=== PATIENT | male | born 1980 | race Caucasian/White ===

== ENCOUNTER 2021-01-20 09:27 | Emergency (ER) | payer SELFPAY ==
[~2021-01-20] VITALS: Ht 160 cm; Wt 58.5 kg
[2021-01-20 09:31] VITALS: BP 130/104
[2021-01-20] MEDS ORDERED: NACL 0.9% 1,000 ML IV ONE (10:05)
[2021-01-20] MEDS ORDERED: KETOROLAC 15 MG/ML VIAL IVP ONE (10:05)
[2021-01-20 10:42] LABS: BASOPHILS % (AUTO) 0.5 % (0.0-2.0); EOSINOPHILS # (AUTO) 0.1 K/uL (0-0.4); EOSINOPHILS % (AUTO) 0.9 % (0.0-4.0); HEMATOCRIT 45.5 % (36-52); HEMOGLOBIN 15.6 g/dL (12.0-18.0); LYMPHOCYTES # (AUTO) 1.9 K/uL (2.0-11.5); LYMPHOCYTES % (AUTO) 20.9 % (20.5-51.1); MEAN CORPUSCULAR HEMOGLOBIN 29 pg (27-31); MEAN CORPUSCULAR HGB CONC 34 g/dL (33-37); MEAN CORPUSCULAR VOLUME 83.1 fL (80-94); MONOCYTES # (AUTO) 0.5 K/uL (0.8-1.0); MONOCYTES % (AUTO) 5.2 % (1.7-9.3); NEUTROPHILS # (AUTO) 6.6 K/uL (1.8-7.7); NEUTROPHILS % (AUTO) 72.5 % (42.2-75.2); PLATELET COUNT (AUTO) 297 K/uL (140-450); RED BLOOD CELL COUNT(AUTO) 5.48 MIL/uL (4.20-6.10); RED CELL DISTRIBUTION WIDTH 13.5 % (11.6-13.7); WHITE BLOOD COUNT (AUTO) 9.1 K/uL (4.8-10.8)
--- NOTE | 2021-01-20 10:53 | NUR ---
OBTAINED CT CONSENT PLACED IN PT CHART.
[2021-01-20 10:55] LABS: BILIRUBIN,URINE 1+ (NEGATIVE); BLOOD, URINE 3+ (NEGATIVE); COLOR,URINE YELLOW (YELLOW); LEUKOCYTE ESTERASE ,URINE NEGATIVE (NEGATIVE); NITRITE, URINE NEGATIVE (NEGATIVE); UGLUCOSE NEGATIVE (NEGATIVE)
[2021-01-20 11:09] LABS: APPEARANCE,URINE SLIGHTLY HAZY (CLEAR)
[2021-01-20 11:12] LABS: RBC,URINE 50-80 /HPF (0-5); WBC,URINE 0-5 /HPF (0-5)
--- NOTE | 2021-01-20 11:38 | NUR ---
PT TAKEN TO CT VIA W/C
[2021-01-20] MEDS ORDERED: MORPHINE SULFATE 2 MG/ML SYR IVP ONE (12:00)
--- NOTE | 2021-01-20 12:56 | NUR ---
40 YEAR OLD MALE COMPLAINS OF RUQ ABDOMINAL PAIN X 3 DAYS. PT STATES HE HAS NAUSEA AND VOMITTING, BUT DENIES DIARRHEA. PT DENIES BLOOD IN VOMIT. BOWEL SOUNDS ACTIVE ALL QUADRANTS, SOFT NONTENDER. PT AOX4, BREATHING EVEN AND UNLABORED, SKIN WARM AND DRY. BED IN LOWEST POSITION, LOCKED, BED RAIL UPX1 PMH - DENIES ALLERGIES - NKA
[2021-01-20 13:12] LABS: ALBUMIN 3.5 g/dL (3.4-5.0); ANION GAP 13.6 (8-16); CARBON DIOXIDE 25.4 mmol/L (21-32); CREATININE 1.2 mg/dL (0.6-1.3); TOTAL BILIRUBIN 0.4 mg/dL (0.0-1.0)
[2021-01-20] MEDS ORDERED: ACET-8386 PO (13:22)
[2021-01-20] MEDS ORDERED: TAMS0.4C96 PO (13:22)
[2021-01-20] MEDS ORDERED: IBUP-2213 PO (13:22)
--- NOTE | 2021-01-20 13:40 | NUR ---
Patient discharged with v/s stable. Written and verbal after care instructions about renal colic given and explained. Patient alert, oriented and verbalized understanding of instructions. Ambulatory with steady gait. All questions addressed prior to discharge. ID band removed. Patient advised to follow up with PMD. Rx of norco, ibuprofen, flomax given. Patient educated on indication of medication including possible reaction and side effects. Opportunity to ask questions provided and answered.
[2021-01-20 13:41] VITALS: BP 132/90
== END 2021-01-20 13:40 | disposition home or self-care (01) ==
LOC: MED 09:27
DX: N20.1 Calculus of ureter (principal); N23 Unspecified renal colic; F17.210 Nicotine dependence, cigarettes, uncomplicated; Z79.899 Other long term (current) drug therapy; Z71.6 Tobacco abuse counseling
CPT/HCPCS: 36415; 74176; 80053; 81001; 85025; 96361; 96374; 96375; 99284; J1885; J2270; J7030

== ENCOUNTER 2021-05-14 19:21 | Emergency (ER) | payer MEDICAID ==
[~2021-05-14] VITALS: Ht 152.4 cm; Wt 56.7 kg
[~2021-05-14 19:21] MED LIST: ACET-8386 PO; IBUP-2213 PO; TAMS0.4C96 PO
[2021-05-14 19:24] VITALS: BP 124/75
--- NOTE | 2021-05-14 19:27 | NUR ---
TO LOBBY A/W BED AMBULATORY
[2021-05-14] MEDS ORDERED: FAMOTIDINE 20 MG TAB PO ONE (19:40)
[2021-05-14] MEDS ORDERED: ALUMINUM HYD/MAG/SIMETHICONE 30 ML UDC PO ONE (19:40)
[2021-05-14 19:58] LABS: BASOPHILS # (AUTO) 0.1 K/uL (0.00-0.22); BASOPHILS % (AUTO) 0.5 % (0.0-2.0); EOSINOPHILS # (AUTO) 0.2 K/uL (0-0.4); EOSINOPHILS % (AUTO) 1.9 % (0.0-4.0); HEMATOCRIT 43.4 % (36-52); HEMOGLOBIN 14.3 g/dL (12.0-18.0); LYMPHOCYTES # (AUTO) 1.9 K/uL (2.0-11.5); LYMPHOCYTES % (AUTO) 17.6 % (20.5-51.1); MEAN CORPUSCULAR HEMOGLOBIN 27 pg (27-31); MEAN CORPUSCULAR HGB CONC 33 g/dL (33-37); MEAN CORPUSCULAR VOLUME 82.3 fL (80-94); MONOCYTES # (AUTO) 0.8 K/uL (0.8-1.0); MONOCYTES % (AUTO) 7.3 % (1.7-9.3); NEUTROPHILS % (AUTO) 72.7 % (42.2-75.2); PLATELET COUNT (AUTO) 479 K/uL (140-450); RED BLOOD CELL COUNT(AUTO) 5.27 MIL/uL (4.20-6.10); RED CELL DISTRIBUTION WIDTH 13.8 % (11.6-13.7)
[2021-05-14 20:13] LABS: ALBUMIN 3.4 g/dL (3.4-5.0); ANION GAP 9.7 (8-16); CARBON DIOXIDE 30.7 mmol/L (21-32); POTASSIUM 4.4 mmol/L (3.5-5.1); TOTAL BILIRUBIN 0.2 mg/dL (0.0-1.0)
--- NOTE | 2021-05-14 21:10 | NUR ---
PT AMB TO BED 1
[2021-05-14] MEDS ORDERED: MORPHINE SULFATE 2 MG/ML SYR IVP ONE (23:20)
[2021-05-14] MEDS ORDERED: FAMO-90 PO (23:44)
--- NOTE | 2021-05-14 23:48 | NUR ---
ERMD at bedside for re-examination and made patient aware of the results
[2021-05-15 00:07] VITALS: BP 119/63
--- NOTE | 2021-05-15 00:07 | NUR ---
pt states that his girlfriend is waiting in the car to drive him home.
--- NOTE | 2021-05-15 00:09 | NUR ---
Patient discharged with v/s stable. Written and verbal after care instructions given and explained. Patient verbalized understanding. Ambulatory with steady gait. All questions addressed prior to discharge. Advised to follow up with PMD.
== END 2021-05-15 00:09 | disposition home or self-care (01) ==
LOC: MED 19:21
DX: R10.13 Epigastric pain (principal); R10.12 Left upper quadrant pain; R11.2 Nausea with vomiting, unspecified
CPT/HCPCS: 36415; 71045; 76705; 80053; 83690; 85025; 93005; 96374; 99285; J2270; Q0092

== ENCOUNTER 2022-03-05 22:59 | Emergency (ER) | payer SELFPAY ==
[~2022-03-05] VITALS: Ht 167.6 cm; Wt 55.5 kg
[~2022-03-05 22:59] MED LIST changes: +FAMO-90 PO
[2022-03-05 23:48] VITALS: BP 143/86
--- NOTE | 2022-03-05 23:52 | NUR ---
PT SENT TO LOBBY
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
[2022-03-06] MEDS ORDERED: KETOROLAC 60 MG/2 ML VIAL IM ONE (00:45)
[2022-03-06] MEDS ORDERED: HYDROcodone/APAP 5/325 MG 1 TAB TAB PO ONE (00:45)
--- NOTE | 2022-03-06 00:57 | NUR ---
PT MEDICATED PER ORDERS.
--- NOTE | 2022-03-06 00:59 | NUR ---
ERMD EVALUATING PT
[2022-03-06] MEDS ORDERED: IBUP-2213 PO (01:16)
[2022-03-06] MEDS ORDERED: ACET-8386 PO (01:16)
[2022-03-06 01:27] VITALS: BP 143/86
--- NOTE | 2022-03-06 01:27 | NUR ---
Patient discharged with v/s stable. Written and verbal after care instructions given and explained. Patient alert, oriented and verbalized understanding of instructions. Ambulatory with steady gait. All questions addressed prior to discharge. ID band removed. Patient advised to follow up with PMD. Rx of NORCO AND IBUPROFEN given. Patient educated on indication of medication including possible reaction and side effects. Opportunity to ask questions provided and answered.
== END 2022-03-06 01:27 | disposition home or self-care (01) ==
LOC: MED 22:59
DX: S42.032A Displaced fracture of lateral end of left clavicle, initial encounter for closed fracture (principal); W18.30XA Fall on same level, unspecified, initial encounter; Y93.89 Activity, other specified; Y92.89 Other specified places as the place of occurrence of the external cause; Y99.8 Other external cause status
CPT/HCPCS: 73030; 96372; 99283; J1885

== ENCOUNTER 2022-03-13 19:04 | Inpatient (IN) | payer MEDICAID ==
[~2022-03-13] VITALS: Ht 167.6 cm; Wt 56.7 kg
[2022-03-13 20:09] VITALS: BP 149/72
--- NOTE | 2022-03-13 22:43 | NUR ---
Patient ambulated to bed 12.
--- NOTE | 2022-03-13 23:01 | NUR ---
41 yo m bib self with c/c of 10/10 burning/itching rash to rt side of neck, cheek, and posterior of rt of head x1day. pt states the rash began all at once, pt's rash is made up of clear filled vesicles and mild redness an dryness. pt states he thinks a spider may have bit him. pt denies taking any medication. denies hx, rx and allergies
[2022-03-14] MEDS ORDERED: ONDANSETRON 4 MG/2 ML VIAL IVP ONE (00:05)
[2022-03-14] MEDS ORDERED: ACYCLOVIR 700 MG in NACL 0.9% 100 ML IV ONE (00:05)
[2022-03-14] MEDS ORDERED: MORPHINE SULFATE 4 MG/ML SYR IVP ONE (00:05)
--- NOTE | 2022-03-14 00:09 | NUR ---
LAB AT BEDSIDE.
[2022-03-14] MEDS ORDERED: ACYCLOVIR 500 MG VIAL IV ONE (00:15)
--- NOTE | 2022-03-14 00:19 | NUR ---
pt placed on rigging loft mechanic.
[2022-03-14 00:20] LABS: BASOPHILS # (AUTO) 0.1 K/uL (0.00-0.22); BASOPHILS % (AUTO) 0.8 % (0.0-2.0); EOSINOPHILS # (AUTO) 0.1 K/uL (0-0.4); EOSINOPHILS % (AUTO) 2.2 % (0.0-4.0); HEMATOCRIT 39.3 % (36-52); HEMOGLOBIN 13.1 g/dL (12.0-18.0); LYMPHOCYTES # (AUTO) 1.9 K/uL (2.0-11.5); LYMPHOCYTES % (AUTO) 28.2 % (20.5-51.1); MEAN CORPUSCULAR HEMOGLOBIN 27 pg (27-31); MEAN CORPUSCULAR HGB CONC 33 g/dL (33-37); MEAN CORPUSCULAR VOLUME 81.4 fL (80-94); MONOCYTES # (AUTO) 0.8 K/uL (0.8-1.0); MONOCYTES % (AUTO) 11.8 % (1.7-9.3); NEUTROPHILS # (AUTO) 3.8 K/uL (1.8-7.7); PLATELET COUNT (AUTO) 250 K/uL (140-450); RED BLOOD CELL COUNT(AUTO) 4.82 MIL/uL (4.20-6.10); RED CELL DISTRIBUTION WIDTH 14.6 % (11.6-13.7); WHITE BLOOD COUNT (AUTO) 6.7 K/uL (4.8-10.8)
[2022-03-14 00:35] LABS: ALBUMIN 3.4 g/dL (3.4-5.0); ANION GAP 9.3 (8-16); CARBON DIOXIDE 30.7 mmol/L (21-32); CREATININE 0.7 mg/dL (0.6-1.3); TOTAL BILIRUBIN 0.3 mg/dL (0.0-1.0)
--- NOTE | 2022-03-14 00:43 | NUR ---
IV ESTAB TO LEFT UPPER ARM 20G. PT MEDICATED PER ORDERS.
--- NOTE | 2022-03-14 03:31 | NUR ---
PT APPEARS TO BE RESTING WITH HIS EYES CLOSED. EQUAL RISE AND FALL OF CHEST WALL. HE OPENS HIS EYES TO SOUND. VSS. BED LOCKED IN LOWEST POSITION, SIDE RAILS X2 FOR SAFETY.
[2022-03-14] MEDS: MORPHINE SULFATE 2 MG/ML SYR IVP PRN (04:58)
--- NOTE | 2022-03-14 05:03 | NUR ---
pt reported 8/10 rt neck pain. pt medicated per prn orders.
--- NOTE | 2022-03-14 07:14 | NUR ---
Pt report given to darrell jones. Transfer of care at this time.
--- NOTE | 2022-03-14 07:14 | NUR ---
Report and continuation of care received from JIMMIE Sullivan.
[2022-03-14 07:40] VITALS: BP 140/82
--- NOTE | 2022-03-14 07:40 | NUR ---
PATIENT ARRIVED ON UNIT FROM ER, NO DISTRESS NOTED. DENIES ANY PAIN AT THIS TIME, HAS SHINGLES LESIONS ON NECK AND FACE, NOT CRUSTED. AAOX4, RA, AMBULATES INDEPENDENTLY. IV SITE INTACT, PATENT, ON SALINE LOCK. ORIENTED PATIENT TO ROOM AND CALL LIGHT. SAFETY MEASURES IN PLACE, CALL LIGHT WITHIN REACH. WILL CONTINUE TO MONITOR.
--- NOTE | 2022-03-14 07:42 | NUR ---
Patient will be admitted to care of Dr. Maravilla. Admited to M/S. Will go to room 113. Belongings list completed. Report to JIMMIE Graham.
--- NOTE | 2022-03-14 08:53 | NUR ---
PATIENT HAS BEEN SCREENED AND CATEGORIZED LOW NUTRITION RISK. PATIENT WILL BE SEEN WITHIN 7 DAYS OF ADMISSION. 03/20/[address]
[2022-03-14] MEDS ORDERED: HYDROcodone/APAP 7.5/325 MG 1 TAB PO PRN (11:15)
[2022-03-14] MEDS ORDERED: ZOLPIDEM 5 MG TAB PO PRN (11:15)
[2022-03-14] MEDS ORDERED: guaiFENesin DM 200/20 MG-10 ML 10 ML UDC PO PRN (11:15)
[2022-03-14] MEDS ORDERED: POTASSIUM CHLORIDE 10 MEQ TABER PO PRN (11:15)
[2022-03-14] MEDS ORDERED: DOCUSATE SODIUM 100 MG GELCAP PO PRN (11:15)
[2022-03-14] MEDS ORDERED: ONDANSETRON 4 MG/2 ML VIAL IM/IVP PRN (11:15)
[2022-03-14] MEDS ORDERED: MORPHINE SULFATE 2 MG/ML SYR IVP PRN (11:15)
[2022-03-14] MEDS ORDERED: ACETAMINOPHEN 325 MG TAB PO PRN (11:15)
[2022-03-14 11:47] LABS: CHOL/HDL RATIO 3.6 (1-4.5); PHOSPHORUS 3.2 mg/dL (2.5-4.9)
[2022-03-14] MEDS ORDERED: CLINDAMYCIN 600MG/D5W PM 50 ML IV SCH (12:00)
[2022-03-14] MEDS ORDERED: CLINDAMYCIN 600 MG in DEXTROSE 5% 50 ML IV SCH (12:00)
--- NOTE | 2022-03-14 13:38 | NUR ---
SCHEDULED MEDICATIONS DUE GIVEN. WILL CONTINUE TO MONITOR.
--- NOTE | 2022-03-14 14:23 | NUR ---
DC PLANNING: THE PATIENT PRESENTED FROM HOME TO ED WITH C/O PAINFUL RASH TO THE RIGHT SIDE OF HIS NECK X 2 DAYS. GIVEN ACYCLOVIR AND MORPHINE IN THE ED, BLOOD CULTURES IN PROGRESS. ID CONSULT ORDERED, PATIENT ON CLINDAMYCIN IV. CM SPOKE WITH THE PATIENT AT BEDSIDE AND CONFIRMED HIS ADDRESS AND PHONE NUMBER. 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 HE IS INDEPENDENT IN ALL ACTIVITIES AND DOES NOT HAVE A PMD OR SEE A DOCTOR. HE HAS PRESUMPTIVE M/CAIT AND STATES HE WILL PURSUE GETTING A REGULAR MD ONCE HE IS FULL SCOPE M/CAIT. HIS BROTHER OR GIRLFRIEND WILL GIVE HIM A RIDE HOME WHEN HE IS STABLE FOR DC. JULIO CÉSAR WILL FOLLOW. Addendum: 03/16/22 at 0920 by Nena Liao CM DC PLANNING: ORDER RECEIVED FOR EMERGENT TRANSFER TO [facility] RELATED TO HERPES ZOSTER AND NEED FOR OPHTHALMOLOGIC EVALUATION. REFERRALS FAXED TO [facility], [facility], [facility], [facility] AND [facility] JULIO CÉSAR WILL ALSO START PROCESS FOR MAC WITH [facility]. JULIO CÉSAR WILL FOLLOW. Addendum: 03/16/22 at 1040 by Nena Liao CM DC PLANNING: PATIENT DECLINED BY [facility] THEIR MEDICAL SERVICE IS AT CAPACITY. CM WILL FOLLOW. Addendum: 03/16/22 at 1223 by Nena Liao CM DC PLANNING: [facility] IS UNABLE TO ACCEPT THEY ARE ON DECEL 3. CM WILL FOLLOW. Addendum: 03/16/22 at 1244 by Nena Liao CM DC PLANNING: ATTEMPTED TO F/U WITH [facility], ON HOLD FOR 35 MINUTES, CALL TERMINATED BY SYSTEM. CM WILL FOLLOW. Addendum: 03/16/22 at 1408 by Nena Liao CM DC PLANNING: PATIENT DECLINED BY RONDA SANTANA OPTHALMOLOGIST STATES THAT THE PATIENT CAN BE SEEN OUTPATIENT, REFUSED TO SPEAK WITH ATTENDING MD HERE. CM WILL FOLLOW. Addendum: 03/16/22 at 1530 by Nena Liao CM DC PLANNING: PER ATTENDING MD, [facility] TRANSFER CANCELLED ID NO LONGER FEELS THIS IS NECESSARY. CM WILL FOLLOW.
[2022-03-14 16:00] VITALS: BP 131/82
[2022-03-14 16:25] LABS: APPEARANCE,URINE CLEAR (CLEAR); BILIRUBIN,URINE NEGATIVE (NEGATIVE); BLOOD, URINE NEGATIVE (NEGATIVE); COLOR,URINE YELLOW (YELLOW); LEUKOCYTE ESTERASE ,URINE NEGATIVE (NEGATIVE); NITRITE, URINE NEGATIVE (NEGATIVE); PH,URINE 7.5 (5.0-9.0); UGLUCOSE TRACE (NEGATIVE)
[2022-03-14 16:41] LABS: BARBITURATE, URINE NEGATIVE ng/ml (NEG <=200); BENZODIAZEPINE, URINE NEGATIVE ng/mL (NEG <=200); CANNABINOID, URINE POSITIVE ng/mL (NEG <=50); COCAINE, URINE POSITIVE ng/mL (NEG <=300)
[2022-03-14 16:42] LABS: OPIATE, URINE POSITIVE ng/mL (NEG <=2000); PHENCYCLIDINE SCREEN,URINE NEGATIVE ng/mL (NEG <=25)
--- NOTE | 2022-03-14 19:18 | NUR ---
GAVE REPORT TO CERTIFIED ORTHOTIST PRACTICE MANAGER NURSE FOR CONTINUITY OF CARE. PATIENT IN STABLE CONDITION.
--- NOTE | 2022-03-14 19:19 | NUR ---
RECD. RESTING IN BED, AWAKE, A/OX4. WATCHING TV. RESPIRATION EVEN AND UNLABORED. NOTED SKIN RASHES AT THE NECK AND SIDE OF FACE. IV SALINE LOCK AT THE LEFT AC G20, PATENT AND INTACT. AMBULATORY TO THE BR. DENIES PAIN 0/10.
[2022-03-14] MEDS: ACYCLOVIR 800 MG TAB PO SCH (21:54)
--- NOTE | 2022-03-14 21:54 | NUR ---
IN BED, NO APPARENT DISTRESS NOTED. ADMINISTERED MEDICATION FOR THE NIGHT. NO COMPLAINT OF PAIN, 0/10.
[2022-03-15] VITALS: BP 124/83
--- NOTE | 2022-03-15 00:16 | NUR ---
DR. UMAÑA ORDERED HIV TEST FOR PATIENT.
[2022-03-15] MEDS: ACYCLOVIR 800 MG TAB PO SCH ×4 (01:09→11:46)
--- NOTE | 2022-03-15 02:00 | NUR ---
SLEEPING COMFORTABLY IN BED. RESPIRATION EVEN AND UNLABORED.
--- NOTE | 2022-03-15 04:44 | NUR ---
WITH ITCHINESS, MEDICATED WITH BENADRYL PO PER MD ORDER.
--- NOTE | 2022-03-15 05:45 | NUR ---
DECREASED FEELINGS OF ITCHINESS. COMFORTABLE IN BED.
--- NOTE | 2022-03-15 07:00 | NUR ---
CONDITION REMAIN STABLE. WILL ENDORSE TO AM SHIFT NURSE FOR CONTINUITY OF CARE.
--- NOTE | 2022-03-15 07:10 | NUR ---
RECEIVED REPORT FROM FRIT BURNER NURSE FOR CONTINUITY OF CARE. PT IN BED AT THIS TIME RESTING. RESPIRATIONS ARE EVEN AND UNLABORED ON ROOM AIR. NO SIGNS OF DISTRESS NOTED. PT IS ALERT AND ORIENTED X4, ABLE TO FOLLOW COMMANDS, ABLE TO MAKE NEEDS KNOWN. PT ABLE TO AMBULATE TO REST ROOM, HOWEVER, UTILIZES URINAL AT BEDSIDE. PT HAS JASON PICC LINE, SALINE LOCKED. PT ON AIRBORNE PRECAUTIONS, FOR SHINGLES. CALL LIGHT WITHIN REACH. ALL SAFETY MEASURES IN PLACE. WILL CONTINUE TO MONITOR. Addendum: 03/15/22 at 0759 by Laura Hutson LVN PT HAS IV TO L AC, 20G. NO PICC LINE IN PLACE.
[2022-03-15 07:28] LABS: BASOPHILS # (AUTO) 0.1 K/uL (0.00-0.22); BASOPHILS % (AUTO) 0.8 % (0.0-2.0); EOSINOPHILS # (AUTO) 0.1 K/uL (0-0.4); EOSINOPHILS % (AUTO) 1.3 % (0.0-4.0); HEMOGLOBIN 15.4 g/dL (12.0-18.0); LYMPHOCYTES # (AUTO) 2.6 K/uL (2.0-11.5); LYMPHOCYTES % (AUTO) 28.7 % (20.5-51.1); MEAN CORPUSCULAR HEMOGLOBIN 27 pg (27-31); MEAN CORPUSCULAR HGB CONC 33 g/dL (33-37); MEAN CORPUSCULAR VOLUME 81.5 fL (80-94); MONOCYTES # (AUTO) 0.9 K/uL (0.8-1.0); MONOCYTES % (AUTO) 10.2 % (1.7-9.3); NEUTROPHILS # (AUTO) 5.4 K/uL (1.8-7.7); PLATELET COUNT (AUTO) 305 K/uL (140-450); RED BLOOD CELL COUNT(AUTO) 5.65 MIL/uL (4.20-6.10); RED CELL DISTRIBUTION WIDTH 14.5 % (11.6-13.7); WHITE BLOOD COUNT (AUTO) 9.1 K/uL (4.8-10.8)
[2022-03-15 07:34] LABS: ANION GAP 12.1 (8-16); CARBON DIOXIDE 30.4 mmol/L (21-32); CREATININE 0.9 mg/dL (0.6-1.3); POTASSIUM 4.5 mmol/L (3.5-5.1)
[2022-03-15 08:00] VITALS: BP 113/70
[2022-03-15] MEDS: PANTOPRAZOLE 40 MG TABEC PO SCH (08:38)
--- NOTE | 2022-03-15 08:46 | NUR ---
ADMINISTERED SCHEDULED MEDICATIONS. PT COMPLAINED OF HEADACHE. STATES HE WOULD LIKE A TYLENOL. ADMINISTERED PRN TYLENOL. EDUCATED PT REGARDING MEDICATIONS ADMINISTERED. PT VERBALIZED UNDERSTANDING OF ALL INFORMATION PROVIDED. WILL CONTINUE TO MONITOR.
--- NOTE | 2022-03-15 12:15 | NUR ---
DID ROUNDS ON PT. PT IN BED RESTING. RESPIRATIONS ARE EVEN AND UNLABORED. NO SIGNS OF DISTRESS NOTED. NO SIGNS OF PAIN OR DISCOMFORT. WILL CONTINUE TO MONITOR.
--- NOTE | 2022-03-15 15:26 | NUR ---
PT PRESSED CALL LIGHT. ASKING IF HE WILL BE ABLE TO GO HOME TODAY. EXPLAINED TO PT THAT MD MUST GIVE DISCHARGE ORDER AND PT MUST BE CLEARED FOR DISCHARGE. PT VERBALIZED UNDERSTANDING. WILL CONTINUE TO MONITOR.
[2022-03-15 16:00] VITALS: BP 109/68
--- NOTE | 2022-03-15 19:05 | NUR ---
ENDORSED PT TO ADJUNCT PROFESSOR NURSE FOR CONTINUITY OF CARE. PT IS STABLE.
--- NOTE | 2022-03-15 19:30 | NUR ---
RECEIVED PT FROM AM NURSE FOR CONTINUITY OF CARE. PT IS STABLE
[2022-03-15 20:00] VITALS: BP 105/62
--- NOTE | 2022-03-15 21:30 | NUR ---
ALL MEDICATIONS GIVEN AT THIS TIME,NO ADVERSE REACTIONS NOTED
--- NOTE | 2022-03-16 02:00 | NUR ---
PATIENT ASLEEP,BREATHING EVEN AND UNLABORED,NO DISTRESS NOTED
[2022-03-16 06:06] LABS: BASOPHILS # (AUTO) 0.1 K/uL (0.00-0.22); BASOPHILS % (AUTO) 0.7 % (0.0-2.0); EOSINOPHILS # (AUTO) 0.2 K/uL (0-0.4); EOSINOPHILS % (AUTO) 1.8 % (0.0-4.0); HEMATOCRIT 46.1 % (36-52); HEMOGLOBIN 15.5 g/dL (12.0-18.0); LYMPHOCYTES # (AUTO) 3.3 K/uL (2.0-11.5); LYMPHOCYTES % (AUTO) 37.2 % (20.5-51.1); MEAN CORPUSCULAR HEMOGLOBIN 27 pg (27-31); MEAN CORPUSCULAR HGB CONC 34 g/dL (33-37); MONOCYTES # (AUTO) 0.9 K/uL (0.8-1.0); MONOCYTES % (AUTO) 9.7 % (1.7-9.3); NEUTROPHILS # (AUTO) 4.5 K/uL (1.8-7.7); NEUTROPHILS % (AUTO) 50.6 % (42.2-75.2); PLATELET COUNT (AUTO) 323 K/uL (140-450); RED BLOOD CELL COUNT(AUTO) 5.69 MIL/uL (4.20-6.10); RED CELL DISTRIBUTION WIDTH 14.8 % (11.6-13.7); WHITE BLOOD COUNT (AUTO) 8.9 K/uL (4.8-10.8)
[2022-03-16 07:00] LABS: ANION GAP 14.6 (8-16); CARBON DIOXIDE 27.4 mmol/L (21-32); CREATININE 0.9 mg/dL (0.6-1.3)
[2022-03-16] MEDS: PANTOPRAZOLE 40 MG TABEC PO SCH (07:45)
[2022-03-16 09:25] VITALS: BP 112/64
[2022-03-16] MEDS: ACYCLOVIR 800 MG TAB PO SCH ×5 (09:38→23:43)
--- NOTE | 2022-03-16 10:57 | NUR ---
Covid PCR swab sent to lab.
[2022-03-16] MEDS: MORPHINE SULFATE 2 MG/ML SYR IVP PRN (12:14)
[2022-03-16 16:43] VITALS: BP 109/68
--- NOTE | 2022-03-16 17:36 | NUR ---
Patient's girlfriend called and asked for update. Gave update to her over the phone.
[2022-03-16 20:00] VITALS: BP 111/64
--- NOTE | 2022-03-16 20:30 | NUR ---
WHEN I ADMINISTERED PATIENT ACYCLOVIR 2000 DOSE AROUND 2020 ON 03/16/22 HE TOOK THE MEDICATION BUT SEEMED AGITATED AND STATED ; " AFTER THIS DON'T BRING ME ANYMORE MEDICATIONS, IM NOT TAKING THEM! IM TIRED AND I WANT TO SLEEP SO DON'T BOTHER ME!"
--- NOTE | 2022-03-16 22:00 | NUR ---
PT DID CALL AND ASK FOR HIS KATINA MENSAH
[2022-03-17] MEDS: ACYCLOVIR 800 MG TAB PO SCH (04:00)
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
--- NOTE | 2022-03-17 04:54 | NUR ---
MANUFACTURING LEAD NOTIFIED @[id number] POLICE NOTIFIED @ [id number]
== END 2022-03-16 22:30 | disposition left against medical advice (07) | DRG 383 ==
LOC: MED 19:04 → MMU 03-14 01:07 → MTU 03-14 06:17
PROVIDERS: ADMIT Student in an Organized Health Care Education/Training Program; ATTEND Student in an Organized Health Care Education/Training Program
DX: B02.9 Zoster without complications (principal); U07.1 COVID-19; L03.221 Cellulitis of neck; S42.002A Fracture of unspecified part of left clavicle, initial encounter for closed fracture; X58.XXXA Exposure to other specified factors, initial encounter; F12.10 Cannabis abuse, uncomplicated; Z87.891 Personal history of nicotine dependence; Z79.891 Long term (current) use of opiate analgesic; Z79.1 Long term (current) use of non-steroidal anti-inflammatories (NSAID); Y93.89 Activity, other specified; Y92.89 Other specified places as the place of occurrence of the external cause; Y99.8 Other external cause status
CPT/HCPCS: 36415; 80048; 80053; 80305; 81003; 82150; 83690; 83735; 84100; 85025; 87040; 87081; 87635-QW; 96365; 96375; 99285; J0133; J2270; J2405; J3490; J7060; Q0163

== ENCOUNTER 2023-07-20 15:21 | Emergency (ER) | payer MEDICAID ==
[~2023-07-20] VITALS: Ht 165.1 cm; Wt 53.2 kg
[~2023-07-20 15:21] MED LIST changes: -ACET-8386 PO; +ACET-8905 PO
[2023-07-20 15:30] VITALS: BP 102/68; PULSE 121; RESP 18; TEMP 96.8; O2SAT 99
[2023-07-20] MEDS ORDERED: KETOROLAC 60 MG/2 ML VIAL IM ONE (16:10)
[2023-07-20] MEDS ORDERED: IBUP-2213 PO (16:23)
[2023-07-20] MEDS ORDERED: ACET-503 PO (16:23)
== END 2023-07-20 17:17 | disposition home or self-care (01) ==
LOC: MED 15:21
DX: S42.031A Displaced fracture of lateral end of right clavicle, initial encounter for closed fracture (principal); S20.211A Contusion of right front wall of thorax, initial encounter; Y08.89XA Assault by other specified means, initial encounter; Y93.89 Activity, other specified; Y92.89 Other specified places as the place of occurrence of the external cause; Y99.8 Other external cause status
CPT/HCPCS: 73030; 96372; 99283; J1885

== ENCOUNTER 2024-03-12 19:09 | Emergency (ER) | payer SELFPAY ==
[~2024-03-12] VITALS: Ht 167.6 cm; Wt 73.0 kg
[~2024-03-12 19:09] MED LIST changes: +ACET-503 PO
[2024-03-12 19:17] VITALS: BP 128/81; PULSE 94; RESP 14; TEMP 97.8; O2SAT 99
[2024-03-12 19:21] VITALS: BP 128/81; PULSE 94; RESP 14; TEMP 97.8; O2SAT 99
[2024-03-12] MEDS ORDERED: CEPH-588 PO (19:39)
[2024-03-12] MEDS ORDERED: BACTO TP (19:39)
== END 2024-03-12 19:51 | disposition home or self-care (01) ==
LOC: MED 19:09
DX: L03.312 Cellulitis of back [any part except buttock and flank] (principal); Z79.1 Long term (current) use of non-steroidal anti-inflammatories (NSAID); Z79.2 Long term (current) use of antibiotics; Z79.899 Other long term (current) drug therapy
CPT/HCPCS: 90471; 90715; 99283

== ENCOUNTER 2024-05-10 07:02 | Emergency (ER) | payer SELFPAY ==
[~2024-05-10] VITALS: Ht 152.4 cm; Wt 52.2 kg
[~2024-05-10 07:02] MED LIST changes: +BACTO TP; +CEPH-588 PO
[2024-05-10 07:19] VITALS: BP 123/75; PULSE 64; RESP 15; TEMP 98.3; O2SAT 98
[2024-05-10] MEDS: KETOROLAC 60 MG/2 ML VIAL IM ONE (07:59)
== END 2024-05-10 08:05 | disposition home or self-care (01) ==
LOC: MED 07:02
DX: R51.9 Headache, unspecified (principal); R03.0 Elevated blood-pressure reading, without diagnosis of hypertension; Z79.899 Other long term (current) drug therapy
CPT/HCPCS: 96372; 99283; J1885